=== PATIENT | female | born 1950 | race African-American/Black ===

== ENCOUNTER → 2019-11-10 | Outpatient (CLI) | payer OTHER ==
[~2019-11-10] VITALS: Ht 172.7 cm; Wt 107.0 kg
[~2019-11-10] MED LIST: CARISOPRODOL 3350 MG PO; CLONIDINE0.1 PO; DEXILANT30 MG PO; DYAZIDE 37.5-21 EACH PO; KAPIDEX30 MG PO; LIPITOR 10 MG10 M1 PO; MYOCALM PO; NORVASC5 MG PO; PANTOPRAZOLE SO40 M1 PO; PERCOCET 5-3251 EACH PO; ROBAXIN 750 MG750 M1 PO; SYNTHROID75 MCG PO; VALIUM2 MG PO; ZOFRAN 4 MG ORAL4 MG PO; ZOFRAN4 MG PO; [UNRECOGNIZED DRUG - OTHER] PO
--- NOTE | 2019-11-10 10:45 | P ---
[facility] [place] [address] PROCEDURE REPORT Name: SEBAS SALAS Room #: REG [facility]#: [id number] Admission: 11/10/19 Attend Phys: Rafael Motley MD Discharge: Date of : 50 Report #: [id number] THIS REPORT FOR: cc: Parth Austin MD, Steven A. MD Thesing, John A. MD ~ CC: Rafael Austin MD DATE OF SERVICE: 11/10/2019 BRIEF HISTORY: The patient is a 69-year-old woman with a history of reflux disease. She had been on Dexilant, but for some reason was recently changed to pantoprazole. She still has intermittent reflux symptoms of regurgitation. She has occasional episodes of solid food dysphagia. She thought she had a chicken bone stuck twice in esophagus in the past, but was never evaluated. She also intermittently has left upper quadrant pain, which often will improve after management of constipation. PREOPERATIVE DIAGNOSES: Reflux symptoms on therapy and intermittent solid food dysphagia. POSTOPERATIVE DIAGNOSES: 1. Moderately large hiatus hernia. 2. Patchy antral gastritis with few scattered erosions. 3. Intermittently seen esophageal ring, distal esophagus. MEDICATIONS: Deep sedation with propofol per anesthesia. SPECIMEN: Biopsies of gastritis. ESTIMATED BLOOD LOSS: 3 mL. PROCEDURES: EGD with biopsy and Shin dilation. FINDINGS: Prior to propofol sedation, procedure of upper endoscopy was discussed with the patient as well as potential risks and its complications. She indicates she understands and desires to proceed. DESCRIPTION OF PROCEDURE: With the patient in left lateral decubitus position, the Olympus video endoscope was inserted in cervical esophagus under direct vision without difficulty. Examination of this organ through its entire length revealed normal esophageal mucosa. As the scope was passed in the distal esophagus, about 2 cm above the squamocolumnar junction, intermittently a mild ring was seen. The scope was advanced distally into the esophagus and [facility] [address] [address] PROCEDURE REPORT Name: SEBAS SALAS Room #: REG [facility]#: [id number] Admission: 11/10/19 Attend Phys: Rafael Motley MD Discharge: Date of : 50 Report #: [id number] squamocolumnar junction was inspected and noted to be unremarkable. Scope was further advanced and she was noted to have a moderately large hiatus hernia. The diaphragmatic hiatus was at about 40 cm and the top of the gastric folds was at about 35 cm. The mucosa hernia was unremarkable. There was a small amount of clear liquid in the hernia, which was aspirated away. The scope was advanced fully into the stomach, was examined on end view as well as retroflexed views. There was patchy gastritis in the antrum and a couple erosions, but no ulcers were seen. There was no evidence of bleeding. Upon retroflexion, the hiatus hernia was seen. No masses were seen. No other abnormalities were identified. Biopsies were obtained of the gastritis. The pylorus, duodenal bulb, and post-duodenal sweep were all inspected and noted to be unremarkable. At that point, the scope was slowly withdrawn and careful circumferential views confirmed the above findings. The patient tolerated the procedure well. Following procedure, she was dilated with passage of 50-[place]and[place] Shin dilator without difficulty. CONDITION OF THE PATIENT UPON DISCHARGE: Following procedure, the patient was drowsy, arousable, conversant, and will be discharged to home when fully ambulatory. INSTRUCTIONS TO THE PATIENT AND FAMILY AT THE TIME OF DISCHARGE: We will follow up on biopsies obtained today and make further recommendations as needed. She reports intermittent episodes of regurgitation. We will have her increase her pantoprazole to 40 mg twice daily. Also, she should elevate the head of the bed. Weight loss may be helpful. We will have her return for followup in the office in 6-8 weeks. She can see the nurse practitioner. If she continues to have difficulty, surgery may be a consideration. Weight loss may be helpful as well. If upper abdominal pain continues to be an issue and etiology is not clear, imaging of the abdomen with either ultrasound or CT may be a consideration. <ELECTRONICALLY SIGNED> By: Rafael Motley MD 11/10/19 1045 [id number] [id number] Rafael Motley MD /nt
--- NOTE | 2019-11-11 16:07 | PATH ---
[facility] [address] [place] [address] PATHOLOGY RPT PROCEDURE Name: GRANT SALASJAIRO Koo Room #: REG BLOSSOM Salas.#: [id number] Admission: 11/10/19 Date of : 50 Discharge: Report #: [id number] Path Case #: [id number] [facility] Accession Number: [id number] . 01 Material submitted: . stomach - BX GASTRITIS . 01 Clinical history: . Pre-op diagnosis: GERD, dysphagia Post-op diagnosis: Gastritis R/O H. pylori . 02 Diagnosis: Gastric mucosa, gastritis rule out H. pylori, endoscopic biopsy: - Mild chronic gastritis with features of mild reactive gastropathy. - Negative for intestinal metaplasia or atrophy. - Negative for Helicobacter pylori (properly controlled immunohistochemical stain performed). (IUV:lawson; 11/11/2019) MBAngelica 11/11/2019 1240 Local . 02 Electronically signed: . Zara Christianson MD, Pathologist NPI- [id number] . 01 Gross description: . The specimen is received in formalin, labeled "Renata Jones, biopsy gastritis, R/O H. pylori". Received are five segments of pale meyers soft tissue ranging in size from 0.3 to 0.6 cm in maximum dimensions. The specimen is submitted entirely in cassette A1. (CAA; 11/10/2019) QAC/QAC 11/10/2019 1750 Local . 02 Pathologist provided ICD-10: K29.50 . 02 CPT . 786547, [id number] Specimen Comment: A courtesy copy of this report has been sent to [phone], [phone] Specimen Comment: [id number] Specimen Comment: Report sent to / DR KRAFT Performed at: [address] [facility] [id number] MD Bc Ellis MD Phone: [phone] Performed at: [address] [address] PATHOLOGY RPT PROCEDURE Name: RENATA SALAS Room #: REG CL Maritza.#: [id number] Admission: 11/10/19 Date of : 50 Discharge: Report #: [id number] Path Case #: [id number] [facility] [address] [id number] MD Zara Christianson MD Phone: [phone]
== END | disposition home or self-care (01) ==
LOC: GI 06:48
DX: R13.10 Dysphagia, unspecified (principal); K21.9 Gastro-esophageal reflux disease without esophagitis; K29.50 Unspecified chronic gastritis without bleeding; K31.9 Disease of stomach and duodenum, unspecified; K22.2 Esophageal obstruction; I10 Essential (primary) hypertension; Z98.890 Other specified postprocedural states; Z79.899 Other long term (current) drug therapy; Z90.49 Acquired absence of other specified parts of digestive tract; Z90.710 Acquired absence of both cervix and uterus; Z88.0 Allergy status to penicillin; Z88.8 Allergy status to other drugs, medicaments and biological substances
CPT/HCPCS: 62110; 62900

== ENCOUNTER 2020-08-02 09:51 | Emergency (ER) | payer OTHER ==
[~2020-08-02] VITALS: Ht 172.7 cm; Wt 105.2 kg
[2020-08-02 12:28] LABS: CALCIUM 8.8 mg/dL (8.5-10.1); CREATININE 0.9 mg/dL (0.6-1.0); POTASSIUM 5.2 mmol/L (3.5-5.1)
[2020-08-02 12:33] LABS: ABSOLUTE NEUTROPHILS 2.6 thou/uL (1.4-8.2); BASOPHILS 1.1 % (0.0-2.0); EOSINOPHILS 0.1 % (0.0-3.0); HEMATOCRIT 45.7 % (37.0-47.0); HEMOGLOBIN 15.5 gm/dL (12.0-15.0); LYMPHOCYTES 29.4 % (24.0-44.0); MCH 29.5 pg (26.0-34.0); MCHC 33.9 g/dL (28.0-37.0); MCV 87.1 fL (80.0-100.0); MONOCYTES 8.3 % (1.0-8.0); PLATELET COUNT 187 thou/uL (150-400); POLYS 61.1 % (36.0-66.0); RBC 5.25 mil/uL (4.20-5.00); RDW 13.8 % (10.5-14.5); WBC 4.2 thou/uL (4.0-11.0)
[2020-08-02 12:34] LABS: ALBUMIN 3.5 g/dL (3.4-5.0); TOTAL BILIRUBIN 0.6 mg/dL (0.2-1.0); TOTAL PROTEIN 8.2 g/dL (6.4-8.2)
[2020-08-02] MEDS ORDERED: ZOFRAN ODT4 MG DISSOLVE (13:05)
[2020-08-02 14:08] VITALS: BP 153/67
== END 2020-08-02 14:09 | disposition home or self-care (01) ==
LOC: ER 09:51
PROVIDERS: Emergency Medicine
DX: U07.1 COVID-19 (principal); R11.2 Nausea with vomiting, unspecified; E03.9 Hypothyroidism, unspecified; I10 Essential (primary) hypertension; K21.9 Gastro-esophageal reflux disease without esophagitis; E78.5 Hyperlipidemia, unspecified; Z90.49 Acquired absence of other specified parts of digestive tract; Z90.711 Acquired absence of uterus with remaining cervical stump; Z79.899 Other long term (current) drug therapy; Z91.048 Other nonmedicinal substance allergy status; Z88.0 Allergy status to penicillin; Z88.6 Allergy status to analgesic agent

== ENCOUNTER 2020-08-07 18:36 | Emergency (ER) | payer OTHER ==
[~2020-08-07] VITALS: Ht 172.7 cm; Wt 108.0 kg
[~2020-08-07 18:36] MED LIST changes: +ZOFRAN ODT4 MG DISSOLVE
[2020-08-07 20:43] LABS: HEMATOCRIT 45.4 % (37.0-47.0); HEMOGLOBIN 15.6 gm/dL (12.0-15.0); MCH 29.5 pg (26.0-34.0); MCHC 34.3 g/dL (28.0-37.0); MCV 86.1 fL (80.0-100.0); PLATELET COUNT 277 thou/uL (150-400); RBC 5.28 mil/uL (4.20-5.00); RDW 13.7 % (10.5-14.5); WBC 5.4 thou/uL (4.0-11.0)
[2020-08-07 20:51] LABS: CALCIUM 9.6 mg/dL (8.5-10.1); CREATININE 1.2 mg/dL (0.6-1.0); POTASSIUM 3.9 mmol/L (3.5-5.1)
[2020-08-07 20:56] LABS: ALBUMIN 3.8 g/dL (3.4-5.0); TOTAL BILIRUBIN 0.7 mg/dL (0.2-1.0); TOTAL PROTEIN 8.4 g/dL (6.4-8.2)
[2020-08-07 21:16] LABS: ABSOLUTE NEUTROPHILS 2.5 thou/uL (1.4-8.2)
[2020-08-07 21:17] LABS: PLATELET ESTIMATE NORMAL
[2020-08-07 22:37] LABS: URINE BILIRUBIN NEGATIVE (Negative); URINE BLOOD NEGATIVE (Negative); URINE CLARITY CLEAR; URINE COLOR YELLOW; URINE GLUCOSE-RANDOM* NEGATIVE (Negative); URINE KETONES TRACE (Negative); URINE LEUKOCYTES-REFLEX NEGATIVE (Negative); URINE NITRITE-REFLEX NEGATIVE (Negative); URINE PROTEIN (DIPSTICK) NEGATIVE (Negative); URINE SPECIFIC GRAVITY 1.025 (1.005-1.035); URINE UROBILINOGEN 0.2 E.U./dl (0.2-1.0)
[2020-08-08 01:43] VITALS: BP 142/79
== END 2020-08-08 02:50 | disposition home or self-care (01) ==
LOC: ER 18:36
PROVIDERS: Emergency Medicine
DX: U07.1 COVID-19 (principal); R10.11 Right upper quadrant pain; R10.31 Right lower quadrant pain; I10 Essential (primary) hypertension; E03.9 Hypothyroidism, unspecified; K21.9 Gastro-esophageal reflux disease without esophagitis; E78.5 Hyperlipidemia, unspecified; Z79.899 Other long term (current) drug therapy; Z88.0 Allergy status to penicillin; Z88.5 Allergy status to narcotic agent; Z91.048 Other nonmedicinal substance allergy status